=== PATIENT | male | born 1975 | race Caucasian/White ===

== ENCOUNTER 2017-06-26 00:29 | Emergency (ER) | payer BC, OTHER ==
[2017-06-26 01:10] VITALS: BP 134/86; PULSE 78; TEMP 97.7; BMI 40.6
--- NOTE | 2017-06-26 01:18 | PDOC ---
*Physical Exam - Vital Signs Last Vital Signs Temp Pulse Resp BP Pulse Ox 97.7 F 78 19 134/86 98 06/26/17 01:07 06/26/17 01:07 06/26/17 01:07 06/26/17 01:07 06/26/17 01:07 - Physical Exam Comments: 06/26/17 01:17 The patient was examined by [FABIÁN Gomez] under my direct supervision. I personally evaluated the patient. I concur with the above findings and the plan of care. *DC/Admit/Observation/Transfer Diagnosis at time of Disposition: Occipital scalp laceration, Head injury - Discharge Dispostion Disposition: HOME Condition at time of disposition: Fair - Referrals Referrals: Sherwin Holguin MD [Primary Care Provider] - - Patient Instructions Printed Discharge Instructions: DI for Laceration Repair of the Scalp, DI for Closed Head Injury Additional Instructions: Keep the incision clean and dry for 24 hours. After 24 hours, you may allow the soap and water to rinse off your incision. Avoid direct pressure of the water to the incision. Pat the incision dry with a clean clothe. Apply a small amount of bacitracin onto the incision. Cover the incision loosely with a bandaid. Take tylenol/motrin as needed for pain. Follow up with your physician or the ER in 48 hours for a wound check. Return to the ER if you notice red streaks, increase redness/swelling/severe pain to the incision. Zuri removal in 11 days. - Post Discharge Activity
--- NOTE | 2017-06-26 01:33 | PDOC ---
History of Present Illness - General Chief Complaint: Injury Stated Complaint: INJURY/HEAD Time Seen by Provider: 06/26/17 01:08 History Source: Patient Exam Limitations: No Limitations - History of Present Illness Initial Comments: 06/26/17 01:29 Best Contact:[phone] PCP:N/A Pmhx:HTN Pshx: 2000/ Appendectomy Allergies:NKDA SH: Smoker/cigarettes: 1/2 pack/d for 15 years...Social alcoholic drink/beer 41-year-old male presents to the emergency department with his complaining of a laceration to the right occipital scalp. Patient states while sitting in a chair at his friend's house, he slipped and fell back hitting the corner of a wall causing a laceration. Fall was witnessed by his who denied LOC. Patient denies headache, dizziness, lightheadedness, visual disturbance, diplopia, facial pains, neck pain/stiffness, back pains, chest pain, shortness of breath, abdominal pains, flank pains, urinary symptoms, bladder or bowel dysfunction. Patient denies any pain at this time. Last tetanus within one year. Past History - Past Medical History Allergies/Adverse Reactions: Allergies Allergy/AdvReac Type Severity Reaction Status Date / Time No Known Allergies Allergy Verified 06/26/17 01:09 Home Medications: Ambulatory Orders NK [No Known Home Medication] 06/26/17 - Suicide/Smoking/Psychosocial Hx Smoking History: Current every day smoker Have you smoked in the past 12 months: Yes Number of Cigarettes Smoked Daily: 10 Information on smoking cessation initiated: No Hx Alcohol Use: Yes Drug/Substance Use Hx: No Review of Systems - Review of Systems Able to Perform ROS?: Yes Comments:: 06/26/17 01:32 CONSTITUTIONAL: Absent: fever, chills, diaphoresis, generalized weakness, malaise, loss of appetite HEENT: Absent: rhinorrhea, nasal congestion, throat pain, throat swelling, difficulty swallowing, mouth swelling, ear pain, eye pain, visual Changes CARDIOVASCULAR: Absent: chest pain, loss of consciousness, palpitations, irregular heart rate, peripheral edema RESPIRATORY: Absent: cough, shortness of breath, dyspnea with exertion, orthopnea, wheezing, stridor, hemoptysis GASTROINTESTINAL: Absent: abdominal pain, abdominal distension, nausea, vomiting, diarrhea, constipation, melena, hematochezia GENITOURINARY: Absent: dysuria, frequency, urgency, hesitancy, hematuria, flank pain, genital pain MUSCULOSKELETAL: Absent: myalgia, arthralgia, joint swelling SKIN: Absent: rash, itching, pallor NEUROLOGIC: +Right occipital scalp lac Absent: headache, focal weakness or paresthesias, dizziness, unsteady gait, seizure, mental status changes, bladder or bowel incontinence PSYCHIATRIC: Absent: anxiety, depression, suicidal or homicidal ideation, hallucinations. 06/26/17 01:32 Is the patient limited Persian proficient: No *Physical Exam - Vital Signs Last Vital Signs Temp Pulse Resp BP Pulse Ox 97.7 F 78 19 134/86 98 06/26/17 01:07 06/26/17 01:07 06/26/17 01:07 06/26/17 01:07 06/26/17 01:07 - Physical Exam Comments: 06/26/17 01:32 GENERAL: Well developed, well nourished. Awake and alert. No acute distress. HEENT: Normocephalic, atraumatic. PERRLA, EOMI. No conjunctival pallor. Sclera are non- icteric. Moist mucous membranes. Oropharynx is clear. NECK: Supple. Full ROM. No JVD. Carotid pulses 2+ and symmetric, without bruits. No thyromegaly. No lymphadenopathy. CARDIOVASCULAR: Regular rate and rhythm. No murmurs, rubs, or gallops. Distal pulses are 2+ and symmetric. PULMONARY: No evidence of respiratory distress. Lungs clear to auscultation bilaterally. No wheezing, rales or rhonchi. ABDOMINAL: Soft. Non-tender. Non-distended. No rebound or guarding. No organomegaly. Normoactive bowel sounds. MUSCULOSKELETAL Normal range of motion at all joints. No bony deformities or tenderness. No CVA tenderness. EXTREMITIES: No cyanosis. No clubbing. No edema. No calf tenderness. SKIN: Warm and dry. Normal capillary refill. No rashes. No jaundice. NEUROLOGICAL: 6cm vert lac to right occipital scalp Alert, awake, appropriate. Cranial nerves 2-12 intact. No deficits to light touch and temperature in face, upper extremities and lower extremities. No motor deficits in the in face, upper extremities and lower extremities. Normoreflexic in the upper and lower extremities. Normal speech. Toes are down- going bilaterally. Gait is normal without ataxia. PSYCHIATRIC: Cooperative. Good eye contact. Appropriate mood and affect. Procedure: 6 cm vertical lack to the right occipital scalp Betadine prep 1% lidocaine/7 mL Copious normal saline irrigation (4) 4.0 vicryl simple interrupted SQ (5) rachel Bacitracin 06/26/17 02:11 *DC/Admit/Observation/Transfer Diagnosis at time of Disposition: Occipital scalp laceration Qualifiers: Encounter type: initial encounter Qualified Code(s): S01.01XA - Laceration without foreign body of scalp, initial encounter Head injury Qualifiers: Encounter type: initial encounter Qualified Code(s): S09.90XA - Unspecified injury of head, initial encounter - Discharge Dispostion Disposition: HOME Condition at time of disposition: Fair Decision to Admit order: No - Referrals Referrals: Sherwin Holguin MD [Primary Care Provider] - - Patient Instructions Printed Discharge Instructions: DI for Laceration Repair of the Scalp, DI for Closed Head Injury Additional Instructions: Keep the incision clean and dry for 24 hours. After 24 hours, you may allow the soap and water to rinse off your incision. Avoid direct pressure of the water to the incision. Pat the incision dry with a clean clothe. Apply a small amount of bacitracin onto the incision. Cover the incision loosely with a bandaid. Take tylenol/motrin as needed for pain. Follow up with your physician or the ER in 48 hours for a wound check. Return to the ER if you notice red streaks, increase redness/swelling/severe pain to the incision. [place] removal in 11 days. - Post Discharge Activity
[2017-06-26] MEDS ORDERED: LIDOCAINE HCL 1%, 10 MG/ML (20ML VIAL) ONE (01:41)
== END 2017-06-26 02:25 | disposition home or self-care (01) ==
LOC: JER 00:29
PROC: 0JQ00ZZ Repair Scalp Subcutaneous Tissue and Fascia, Open Approach (ICD-10-PCS; principal; 2017-06-26)
DX: S01.01XA Laceration without foreign body of scalp, initial encounter (principal); W07.XXXA Fall from chair, initial encounter; Y93.89 Activity, other specified; Y92.098 Other place in other non-institutional residence as the place of occurrence of the external cause; Y99.0 Civilian activity done for income or pay; F17.210 Nicotine dependence, cigarettes, uncomplicated
CPT/HCPCS: 99281-25